=== PATIENT | male | born 1935 | race Caucasian/White ===

== ENCOUNTER 2016-06-01 14:04 | Inpatient (IN) | payer MEDICARE ==
[~2016-06-01] VITALS: Ht 172.7 cm; Wt 91.3 kg
[~2016-06-01 14:04] MED LIST: ASA OR; ASPIRIN CHEWABL81 MG OR; ASPIRIN ENTERIC81 MG PO; ATENOLOL50 MG OR; ATENOLOL50 MG PO; AUGMENTIN875TAB PO; AVELOX400 MG PO; AZITHROMYCIN250 MG PO; BABY ASPIRIN81 MG OR; BAYER ASPIRIN E81 MG PO; CIPROFLOXACN500 MG PO; CLONAZEPAM0.5 MG OR; CLONAZEPAM1 MG PO; DONEPEZIL5 MG PO; DUONEB IN; ENOXAPARIN40 MG/0.1 SC; FLAGYL ER750 MG PO; FLOMAX0.4 M1 PO; FLOMAX0.4 MG OR; FLONASE0.05 %; FLUOCINONIDE0.054 TOP; GLYBURIDE5 M1 OR; GLYBURIDE5 MG PO; HYDROCO/APAP1 T11 OR; IMDUR30 MG OR; IMDUR30 MG PO; ISOSORB MONO30 MG PO; LANTUS SOLOSTAR SC; LANTUS100 MG/ML SC; LASIX 40 MG TAB40 MG PO; LASIX 40 MG40 MG/TAB PO; LASIX20 MG OR; LORTAB 1010 MG PO; LORTAB 5/3255 MG PO; LORTAB5 PO; MEDDOSEPAK PO; METFORMIN1000 MG OR; METFORMIN500 MG PO; METOCLOPRAM5 MG PO; MIRTAZAPINE15 MG PO; NEXIUM40 MG PO; NIACIN250 MG PO; NIASPAN1000 ER OR; NYQUI1 OR; NYQUIL PO; OMEGA 3550 MG PO; OXYCOD/APAP1 TA4 PO; PERCOCET 5/325M1 TAB PO; PLAVIX75 MG OR; PLAVIX75 MG PO; PRAVASTATIN SOD20 MG PO; PRAVASTATIN20 MG OR; PRAVASTATIN20 MG PO; PREDNISONE50 MG PO; PRILOSEC OTC20 MG OR; PRILOSEC20 MG/CAP PO; PROTONIX40 M2 PO; PROZAC10 MG OR; SERTRALINE HCL50 MG PO; SERTRALINE50 MG PO; SYMBICORT1 AE1 IN; TAM75CAP PO; TRILIPIX135 MG OR; UNASOM; XANAX0.25 MG PO; ZOLPIDEM10 M1 PO; ZOLPIDEM5 M1 PO; ZPAK PO; ZYRTEC10 MG OR
--- NOTE | 2016-06-01 14:27 | NUR ---
PT TRIAGED, TAKEN TO ROOM 8 VIA WC. PT CHANGED INTO GOWN AND PLACED ON MONITOR.
--- NOTE | 2016-06-01 15:10 | NUR ---
PT TO RADIOLOGY VIA STRETCHER LABS PENDING IV SITE LAC HEALTHY. BRIA PROVIDED TO SAME.
[2016-06-01 15:26] LABS: INFLUENZA A NONE DETECTED (NONE DETECT); INFLUENZA B NONE DETECTED (NONE DETECT)
[2016-06-01 15:38] LABS: ALBUMIN 4.6 g/dL (3.2-5.0); ALKALINE PHOSPHATASE 70 u/l (38-126); ANION GAP 19 (6-22 (CALC)); BILIRUBIN, TOTAL 0.7 mg/dL (0.0-1.4); BUN 15 mg/dL (8-23); BUN/CREATININE RATIO 18 (12-20 (CALC)); CALCIUM 9.8 mg/dL (8.4-10.2); CARBON DIOXIDE 27 mmol/l (22-30); CHLORIDE 98 mmol/l (95-108); CREATININE 0.8 mg/dL (0.7-1.3); GFR > 60 ML/MIN (>=60 (CALC)); GFR FOR AFR.AMER. > 60 ML/MIN (>=60 (CALC)); GLUCOSE 118 mg/dL (82-115); LIPASE 30 u/l (23-300); POTASSIUM 4.8 mmol/l (3.5-5.1); SGOT/AST 27 u/l (19-48); SGPT/ALT 31 u/l (11-66); SODIUM 139 mmol/l (137-146); TOTAL PROTEIN 7.7 g/dL (6.3-8.2)
[2016-06-01 15:49] LABS: IMMATURE GRANULOCYTES 0.4 % (0.0-1.0); MEAN CELL VOLUME 85.6 fL CALC (80.0-100.0); MEAN CORPUSCULAR HGB CONC 31.6 g/L CALC (32.0-36.0); NEUT# 9.51 thou/uL (1.82-7.42); RED BLOOD COUNT 4.44 mill/uL (4.70-6.10)
--- NOTE | 2016-06-01 16:05 | NUR ---
PT RETURNED FROM RADIOLOGY ADVISED OF WAIT TIME. NO FURTHER N/V SINCE ZOFRAN IV. SITE HEALTHY
--- NOTE | 2016-06-01 17:35 | NUR ---
PT ASSISTED UP TO BEDSIDE CHAIR. IV SITE HEALTHY. PT ADVISED OF CONTINUED NEED FOR URINE. PT PREVIOUSLY VOIDED IN ICE CHIP CUP. VSS.
--- NOTE | 2016-06-01 17:55 | NUR ---
PT UP AMBULATING IN [place]. DRINKING FROM SINK. PT REDIRECTED. URINE SPECIMEN COLLECTED.
[2016-06-01 18:04] LABS: URINE BILIRUBIN - DIPSTICK NEGATIVE (NEGATIVE); URINE BLOOD DIPSTICK LARGE (NEGATIVE); URINE CLARITY CLEAR; URINE COLOR YELLOW; URINE GLUCOSE - DIPSTICK NEGATIVE (NEGATIVE); URINE KETONE NEGATIVE (NEGATIVE); URINE LEUK ESTERASE NEGATIVE (NEGATIVE); URINE NITRITE - DIPSTICK NEGATIVE (Negative); URINE PH 7.5 (4.5-8.0); URINE PROTEIN - DIPSTICK TRACE mg/dL (NEG-TRACE); URINE SPECIFIC GRAVITY 1.015
[2016-06-01 18:23] LABS: URINE WBC 0-2 WBC/hpf (0-5)
--- NOTE | 2016-06-01 18:53 | NUR ---
REPORT PROVIDED TO LOBITO GARCIA.
--- NOTE | 2016-06-01 19:10 | NUR ---
PT SITTING IN BEDSIDE CHAIR. RESP EVEN AND UNLABORED. NO ACUTE DISTRESS NOTED. PT ALERT. DENIES PAIN. VSS.
--- NOTE | 2016-06-01 19:38 | NUR ---
ATTEMPTED TO CALL REPORT TO AUBRIE GOSS LPN UNABLE TO TAKE REPORT AT THIS TIME.
--- NOTE | 2016-06-01 19:55 | NUR ---
REPORT GIVEN TO GEMMA ALFRED MS
--- NOTE | 2016-06-01 20:13 | NUR ---
Admission Note Report Given to: GEMMA ALFRED Transported by: Wheelchair X Stretcher Transported with: Nurse X Transporter X Patent IV O2 Army Manager
[2016-06-01 20:20] VITALS: BP 116/58
--- NOTE | 2016-06-01 20:20 | NUR ---
80 yr old white male admitted medsurg rm 260 per stretcher from er. transferred to weigh bed. weight obtained. admits to pain meds @ home, said he "filled the perscription last week" & "haven't had any for 2 days." pt also admits "never been a patient here." pts last admission was 2014. telemetry report rec'd per brittany guillaume sr hr 83. history rec'd per pt & er. oriented to room. fall precautions initiated. bed alarm set.
--- NOTE | 2016-06-01 21:40 | NUR ---
cont to c/o rt hip & knee pain. dr flowers notified per jose velásquez rn. orders rec'd.
--- NOTE | 2016-06-01 22:00 | NUR ---
percocet 5mg po given per request for rt hip & knee pain. pt admits "i'll probably need 2." instructed pt about order. pt verbalized understanding.
--- NOTE | 2016-06-01 23:00 | NUR ---
watching tv. no further c/o voiced.
[2016-06-02] VITALS: BP 138/67
--- NOTE | 2016-06-02 00:20 | NUR ---
PT APPEARS TO BE SLEEPING IN SEMI FOWLERS POSITION;IV FLUIDS INFUSING WELL;RESPIRATIONS EVEN AND UNLABORED ON RA;URINAL AT BEDSIDE;FALL PRECAUTIONS IN PLACE;BED ALARM X2 ON;CALL LIGHT WITHIN REACH;WILL CONTINUE TO MONITOR
[2016-06-02 04:15] VITALS: BP 145/70
--- NOTE | 2016-06-02 04:30 | NUR ---
PT RESTING IN SEMI FOWLERS POSITION;PT COMPLAINS OF RIGHT HIP AND RIGHT KNEE PAIN RATING 8/10 ON THE PAIN SCALE AND REQUESTS PRN PAIN MEDICATION;PT ALSO HAS A TEMP OF 101.3;PT MEDICATED WITH PRN PERCOCET/ACETAMINOPHEN;BLANKETS REMOVED & AC LOWERED;PT REPOSITIONED IN BED;BED ALARM IN PLACE;URINAL AT BEDSIDE;PT DENIES ANY OTHER NEEDS AT THIS TIME;BED IN LOWEST POSITION WITH CALL LIGHT IN REACH;WILL CONTINUE TO MONITOR
--- NOTE | 2016-06-02 05:26 | NUR ---
PT TEMP RECHECKED AT THIS TIME;TEMP OF 100.5 OBTAINED;PT DENIES ANY NEEDS AT THIS TIME;PT RESTING AT BEDSIDE WITH IV FLUIDS INFUSING WELL;FALL PRECAUTIONS IN PLACE WITH BED ALARM ON;CALL LIGHT WITHIN REACH;WILL CONTINUE TO MONITOR
--- NOTE | 2016-06-02 07:17 | NUR ---
BEDSIDE REPORT RECEIVED FROM GEMMA MACK. PT SLEEPING AT THIS TIME. CALL LIGHT WITHIN REACH.
[2016-06-02 08:19] VITALS: BP 122/58
--- NOTE | 2016-06-02 08:50 | NUR ---
PT REPORTS SEVERE BACK AND RIGHT HIP PAIN. PERCOCET PO ADMINISTERED. PT REPORTS RELIEF OF PAIN. AT BEDSIDE. REPROTS PT HAS BEEN UNABLE TO AMBULATE FOR PAST 1-1.5 MONTHS AT HOME. 1 X 0.8 X 0 CM STAGE II TO LEFT BUTTOCK. DUODERM APPLIED, DR STEELE NOTIFIED. FALL PRECAUTIONS REINFORCED. CALL LIGHT REVIEWED AND IN REACH. PLAN OF CARE DISCUSSED. DR. STEELE IN TO SEE PT AT THIS TIME.
[2016-06-02] MEDS ORDERED: KEFLEX500 M1 PO (09:13)
--- NOTE | 2016-06-02 13:31 | NUR ---
PT SLEEPING AT THIS TIME. WILL CONTINUE TO MONITOR.
--- NOTE | 2016-06-02 14:14 | NUR ---
DR. STEELE NOTIFIED OF TEMP 100.5. ORDER GIVEN TO HOLD DISCHARGE FOR TODAY.
[2016-06-02 15:24] VITALS: BP 113/53
--- NOTE | 2016-06-02 16:30 | NUR ---
TORADOL IV ADMINISTERED. LARGE AMOUNT OF BROWN DIARRHEA AT THIS TIME. PT SHOWERED, LINENS CHANGED, TEETH BRUSHED. PT TOELRATED ACTIVITY WELL.
--- NOTE | 2016-06-02 17:36 | NUR ---
TEMP NOW 98.6. PT REPORTS RELIEF OF BODY ACHES. WILL CONTINUE TO MONITOR.
[2016-06-02 19:20] VITALS: BP 133/67
--- NOTE | 2016-06-02 20:00 | NUR ---
PATIENT C/O RIGHT HIP AND KNEE PAIN-7/10 ON PAIN SCALE. PATIENT MEDICATED WITH PERCOCET 5/325MG PO ORDERED FOR PAIN. PATIENT INCONT OF SMALL AMT OF BROWN STOOL ON PAD IN BED. PATIENT ASSISTED WITH SHOWER AND RETURNED TO BED. PATIENT WITH IV SITE TO LEFT WRIST-SITE IS HEALTHY WITH GOOD BLOOD RETURN. IVF NS PATENT AND INFUSING AT 125CC/HR. PATIENT VOIDING [place] URINE IN URINAL. PATIENT APPEARS STEADY ON HIS FEET. SAFETY PRECAUTIONS REINFORCED. CALL LIGHT IN REACH. WILL CONT TO MONITOR.
[2016-06-02 23:45] VITALS: BP 121/65
--- NOTE | 2016-06-03 00:26 | NUR ---
PATIENT APPEARS SLEEPING AT THIS TIME. CALL LIGHT IN REACH. WILL CONT TO MONITOR.
[2016-06-03 03:35] VITALS: BP 140/60
--- NOTE | 2016-06-03 03:46 | NUR ---
PATIENT APPEARS SLEEPING AT THIS TIME WITH BED ALARM IN PLACE FOR PATIENT SAFETY. CALL LIGHT IN REACH. WILL CONT TO MONITOR.
--- NOTE | 2016-06-03 06:45 | NUR ---
REPORT RECEIVED FROM LOBITO VENTURA. PT RESTING COMFORTABLY, GIVEN METFORMIN, DENIES PAIN, SOB, OR DISCOMFORT. CALL LIGHT WITHIN REACH, SAFETY REVIEWED, INSTRUCTED PT TO CALL FOR ASSISTANCE, PT VERBALIZES UNDERSTANDING.
[2016-06-03 08:00] VITALS: BP 139/66
[2016-06-03 08:33] VITALS: BP 139/66
== END 2016-06-03 13:46 | DRG 603 ==
LOC: ENPENDDIS → ED 14:04 → ED-I 16:09 → ED 19:03 → MS2 19:04
PROVIDERS: Family Medicine; ADMIT Internal Medicine; ATTEND Internal Medicine
DX: L03.317 Cellulitis of buttock (principal); L89.322 Pressure ulcer of left buttock, stage 2; E11.9 Type 2 diabetes mellitus without complications; J44.9 Chronic obstructive pulmonary disease, unspecified; R11.2 Nausea with vomiting, unspecified; I25.10 Atherosclerotic heart disease of native coronary artery without angina pectoris; R41.82 Altered mental status, unspecified; M48.00 Spinal stenosis, site unspecified; M19.90 Unspecified osteoarthritis, unspecified site; E78.5 Hyperlipidemia, unspecified; Z87.891 Personal history of nicotine dependence; Z95.5 Presence of coronary angioplasty implant and graft; Z95.1 Presence of aortocoronary bypass graft

== ENCOUNTER 2016-08-24 20:35 | Emergency (ER) | payer MEDICARE ==
[~2016-08-24] VITALS: Ht 172.7 cm; Wt 91.0 kg
[~2016-08-24 20:35] MED LIST changes: +KEFLEX500 M1 PO
[2016-08-24 21:04] LABS: HEMATOCRIT 29.2 % (39.0-50.0); HEMOGLOBIN 9.3 g/dl (14.0-18.0); IMMATURE GRANULOCYTES 0.5 % (0.0-1.0); MEAN CELL VOLUME 86.9 fL CALC (80.0-100.0); MEAN CORPUSCULAR HGB 27.7 pG CALC (26.0-32.0); MEAN CORPUSCULAR HGB CONC 31.8 g/L CALC (32.0-36.0); NEUT# 3.6 thou/uL (1.82-7.42); RED BLOOD COUNT 3.36 mill/uL (4.70-6.10); RED CELL DISTRI WIDTH 15.9 % (11.5-15.5)
[2016-08-24 21:23] LABS: ALBUMIN 3.6 g/dL (3.2-5.0); ALKALINE PHOSPHATASE 63 u/l (38-126); ANION GAP 15 (6-22 (CALC)); BILIRUBIN, TOTAL 0.3 mg/dL (0.0-1.4); BUN 22 mg/dL (8-23); BUN/CREATININE RATIO 19 (12-20 (CALC)); CALCIUM 8.9 mg/dL (8.4-10.2); CARBON DIOXIDE 31 mmol/l (22-30); CHLORIDE 97 mmol/l (95-108); CREATININE 1.1 mg/dL (0.7-1.3); GFR > 60 ML/MIN (>=60 (CALC)); GFR FOR AFR.AMER. > 60 ML/MIN (>=60 (CALC)); GLUCOSE 173 mg/dL (82-115); POTASSIUM 4.2 mmol/l (3.5-5.1); SGOT/AST 15 u/l (19-48); SGPT/ALT 27 u/l (11-66); SODIUM 138 mmol/l (137-146)
[2016-08-24 21:24] LABS: ACT PARTIAL THROMBO TIME 25.2 SECONDS (20.0-32.5); PROTHROMBIN TIME 10.4 SECONDS (9.0-12.5)
[2016-08-24 21:36] LABS: MYOGLOBIN 33 ng/mL (0 - 121)
[2016-08-24] MEDS ORDERED: PRILOSEC20 MG/CAP PO (22:58)
[2016-08-24 23:30] VITALS: BP 144/65
== END 2016-08-24 23:30 | disposition left against medical advice (07) ==
LOC: ED 20:35 → ED-I 21:55 → ED 23:30
PROVIDERS: Emergency Medicine
DX: R07.9 Chest pain, unspecified (principal); I25.700 Atherosclerosis of coronary artery bypass graft(s), unspecified, with unstable angina pectoris; Z95.1 Presence of aortocoronary bypass graft; Z95.5 Presence of coronary angioplasty implant and graft; R68.84 Jaw pain; Z91.19 Patient's noncompliance with other medical treatment and regimen

== ENCOUNTER 2017-05-15 21:46 | Observation (INO) | payer MEDICARE ==
[~2017-05-15] VITALS: Ht 172.7 cm; Wt 100.6 kg
--- NOTE | 2017-05-15 22:05 | NUR ---
PT ARRIVED BY EMS. SALINE LOCK NOTED IN LEFT ARM, O2 ON VIA NASAL CANNULA. MONITOR SHOWING SINUS RHYTHM W/O ECTOPY. PT STATES THAT EPISODE BEGAN AT ABOUT 2100 HOURS AND CAUGHT HIM BY SUPPRISE. STATES THAT HE PAVICKED AND CALLED 911 INSTEAD OF TAKING PERSONAL NTG.
--- NOTE | 2017-05-15 22:30 | NUR ---
PLACED 1 INCH NITRO OINTMENT ON LEFT ANTERIOR CHEST WALL. PT MONITOR SHOWING SINUS RHYTHM. ASYMPTOMATIC AFTER PLACEMENT OF OINTMENT.
[2017-05-15 22:59] LABS: HEMATOCRIT 28.7 % (39.0-50.0); HEMOGLOBIN 8.4 g/dl (14.0-18.0); IMMATURE GRANULOCYTES 0.6 % (0.0-1.0); MEAN CORPUSCULAR HGB 22.8 pG CALC (26.0-32.0); MEAN CORPUSCULAR HGB CONC 29.3 g/L CALC (32.0-36.0); NEUT# 6.73 thou/uL (1.82-7.42); RED BLOOD COUNT 3.68 mill/uL (4.70-6.10); RED CELL DISTRI WIDTH 16.9 % (11.5-15.5)
[2017-05-15 23:02] LABS: URINE BILIRUBIN - DIPSTICK NEGATIVE (NEGATIVE); URINE BLOOD DIPSTICK NEGATIVE (NEGATIVE); URINE COLOR YELLOW; URINE GLUCOSE - DIPSTICK 250 mg/dL (NEGATIVE); URINE KETONE NEGATIVE (NEGATIVE); URINE LEUK ESTERASE NEGATIVE (NEGATIVE); URINE NITRITE - DIPSTICK NEGATIVE (Negative); URINE PH 6.5 (4.5-8.0); URINE PROTEIN - DIPSTICK NEGATIVE (NEG-TRACE); URINE UROBILINOGEN - DIPSTICK 0.2 E.U./dL (0.2)
[2017-05-15 23:04] LABS: URINE CLARITY CLEAR
[2017-05-15 23:12] LABS: ALBUMIN 3.8 g/dL (3.2-5.0); ALKALINE PHOSPHATASE 85 u/l (38-126); BILIRUBIN, TOTAL 0.1 mg/dL (0.0-1.4); BUN 15 mg/dL (8-23); BUN/CREATININE RATIO 17 (12-20 (CALC)); CARBON DIOXIDE 25 mmol/l (22-30); CHLORIDE 96 mmol/l (95-108); CREATININE 0.9 mg/dL (0.7-1.3); GFR > 60 ML/MIN (>=60 (CALC)); GFR FOR AFR.AMER. > 60 ML/MIN (>=60 (CALC)); SGOT/AST 16 u/l (19-48); SGPT/ALT 22 u/l (11-66); SODIUM 138 mmol/l (137-146)
[2017-05-15 23:13] LABS: ACT PARTIAL THROMBO TIME 25.2 SECONDS (20.0-32.5); INTERNATIONAL NORMALIZED RATIO 0.9 RATIO (0.7-1.3); PROTHROMBIN TIME 10.2 SECONDS (9.0-12.5)
[2017-05-15 23:14] LABS: ANION GAP 21 (6-22 (CALC)); POTASSIUM 3.6 mmol/l (3.5-5.1)
--- NOTE | 2017-05-15 23:15 | NUR ---
PT STATES THAT HE DOES NOT WANT TO STAY. ADVIED PT THAT HE NEEDS TO WAIT FOR LAB RESULTS BEFORE DECISION MAKING. AGREES TO LET MD TALK TO HIM AFTER RESULTS RETURN.
[2017-05-15 23:24] LABS: MYOGLOBIN 64 ng/mL (0 - 121)
[2017-05-16] MEDS ORDERED: ISOSORB DIN30 MG PO (00:21)
[2017-05-16] MEDS ORDERED: OXYCODONE/ACETA1 TA8 PO (00:23)
[2017-05-16] MEDS ORDERED: PRAVASTATIN SOD20 MG PO (00:24)
[2017-05-16] MEDS ORDERED: SERTRALINE50 MG PO (00:25)
[2017-05-16] MEDS ORDERED: PROTONIX40 M2 PO (00:25)
[2017-05-16] MEDS ORDERED: CLOPIDOGREL75 MG PO (00:30)
--- NOTE | 2017-05-16 00:30 | NUR ---
TALKED PT INTO STAYING HERE THIS EVENING DUE TO UNAVAILABLITY OF TRASPOTATION TO RESIDENCE. PT ORIGINALLY WANTED TO BE TRANSFERRED TO [facility] DUE TO SENIOR CYTOGENETIC TECHNOLOGIST AT THAT LOCATION.
[2017-05-16] MEDS ORDERED: PRESERVISION PO (00:33)
[2017-05-16] MEDS ORDERED: BASAGLAR K100 UNIT/M SC ×2 (00:35→00:37)
[2017-05-16 01:15] VITALS: BP 150/69
--- NOTE | 2017-05-16 01:15 | NUR ---
PT ARRIVED TO UNIT VIA STRETCHER WITH ER STAFF. AMBULATED TO BED INDEPENDENTLY. DENIES PAIN UPON ARRIVAL. RESPIRATIONS EVEN AND UNLABORED ON ROOM AIR. TELE ON AND NITRO PASTE TO LEFT UPPER CHEST. ORIENTED TO ROOM AND CALL LIGHT SYSTEM. PLAN OF CARE DICUSSED. PT ENCOURAGED TO VERBALIZE CONCERNS. STATES THAT HE INTENDS TO LEAVE FIRST THING IN THE MORNING. DISCUSSED LAB WORK AND REASON FOR OBSERVATION. SAFETY MEASURES IN PLACE. CALL LIGHT WITHIN REACH.
--- NOTE | 2017-05-16 01:54 | NUR ---
[facility] TROPONIN OF 0.123 CALLED TO . PT IS ASYMPTOMATIC, DENIES CHEST PAIN AND IS SR ON TELEMETRY. WILL DO EKG TO COMPARE. DR. STEELE ORDERED ANOTHER TROPONIN IN FOUR HOURS AND BEGIN TRANSFER PROCESS TO [facility] FIRST THING IN THE MORNING. PT MADE AWARE OF DOCTORS ORDERS. HE STATES THAT HE STILL PLANS TO LEAVE [facility] AND WILL GO SEE HIS ROW BOSS DR. FERNANDEZ IN [place] SOON HIS CAN PICK HIM UP FROM [facility]. PT MADE AWARE OF THE RISKS OF LEAVING AMA WITH HIS CURRENT LAB WORK AND CONDITION. HE STATES HIS UNDERSTANDING AND THAT HE DOES NOT PLAN TO BE TRANSFERED TO [facility] VIA MEDICAL TRANSPORT. WILL KEEP PT AND MD INFORMED OF ANY CHANGES.
[2017-05-16 03:52] VITALS: BP 127/58
--- NOTE | 2017-05-16 03:54 | NUR ---
WHEN PT WAS AWAKENED FOR VITAL SIGNS HE ASKED, "WHY AM I HERE?" PT DID NOT RECALL ANY EVENTS LEADING UP TO HIS HOSPITAL STAY. WHEN PT WAS REMINDED OF HIS CONDITION, HE STATES THAT HE STILL DOES NOT REMEMBER ANYTHING. HE IS ORIENTED X 3. PT UPDATED AND REMINDED OF HIS INTENTIONS TO LEAVE THIS MORNING AND ALSO REMINDED OF THE RISKS. WILL DISCUSS AGAIN WITH PATIENT AFTER NEXT TROPONIN RESULTS ARE KNOWN. HE CONTINUES TO DENY ANY CHEST PAIN. RESPIRATIONS EVEN AND UNLABORED ON ROOM AIR. VS STABLE. SAFETY MEASURES IN PLACE. CALL LIGHT WITHIN REACH.
--- NOTE | 2017-05-16 06:23 | NUR ---
MORNING TROPONIN ELEVATED AGAIN. ONCE PT WAS AWAKENED FULLY HE DID RECALL ALL EVENTS AND STILL DECLINED TRANSFER TO [facility]. NURSE SPOKE WITH ON THE PHONE AND SHE ALSO STATES THAT THEY WOULD RATHER AMA AND GO TO DR. CHRISTENSEN OFFICE. DR. CHRISTENSEN [employer]TER AND [employer] BUS DRIVER SERVICE NOTIFIED OF PT'S PLANS TO GO TO OFFICE THIS MORNING. PT NMFORMED OF URGENCY OF HIS CONDITION, HOWEVER, DOES NOT SEEM ANXIOUS AND STATES THAT HE WANTS TO GO HOME FIRST AND CHANGE CLOTHES.
--- NOTE | 2017-05-16 07:24 | NUR ---
PT WAS OFFERED TO GO TO [facility] VIA MEDICAL TRANSPORT PENDING AN ADMITTING PHYSICIAN AND THAT A TRANSPORT REQUEST WAS INITIATED; PT INFORMED THAT THIS IS A SAFER CHOICE THAN LEAVING AMA. HE DECLINED THIS TRANSPORT OPTION WELL AND STATES HE WILL ONLY LEAVE SOON HIS COMES TO PICK HIM UP. PT WAS REMINDED OF THE URGENCY OF HIS CONDITION AND NURSE INSTRUCTED HIM TO GO TO THE EMERGENCY DEPARTMENT OF THE [facility] OF HIS CHOICE. PT THEN STATES, "OK, BUT FIRST I AM GOING HOME. I NEED TO CHANGE MY CLOTHES." CALLED TO LET STAFF KNOW THAT SHE IS ON HER WAY TO SENIOR TECHNICAL WRITER PT. HIS CONDITION REMAINS STABLE; CONTINUES TO DENY CHEST PAIN, NO SOB. HE IS ALERT AND ORIENTED X 3. SAFETY MEASURES REMAIN IN PLACE.
--- NOTE | 2017-05-16 07:45 | NUR ---
Patient decides to leave AMA. Multiple attempts made to ecourage patient to remain here for continued treatment. Explained to patient all risks of leaving against medical advice including . Pt verbalized understanding of all risks. Pt also encouraged to return to [facility] at any time, especially if symptoms continue or become worse. Pt verbalized understanding.
== END 2017-05-16 07:36 | disposition left against medical advice (07) ==
LOC: ED 21:46 → ED-I 05-16 00:30 → ED 05-16 00:45 → MS2 05-16 00:46
PROVIDERS: Emergency Medicine; ADMIT Internal Medicine; ATTEND Internal Medicine
DX: R07.9 Chest pain, unspecified (principal); D64.9 Anemia, unspecified; E11.9 Type 2 diabetes mellitus without complications; Z95.1 Presence of aortocoronary bypass graft; Z95.5 Presence of coronary angioplasty implant and graft